=== PATIENT | male | born 1985 | race Caucasian/White ===

== ENCOUNTER 2017-02-10 12:56 | Emergency (ER) | payer OTHER ==
[~2017-02-10] VITALS: Ht 175.3 cm; Wt 92.3 kg
[2017-02-10 13:02] VITALS: Ht 175.3 cm; Wt 92.3 kg
--- NOTE | 2017-02-10 15:53 | RADRPT ---
PROCEDURE: XR Foot. CLINICAL INDICATION: Pain TECHNIQUE: AP, lateral and oblique views of the right foot was obtained. The images were reviewed on a PACS workstation. COMPARISON: None. FINDINGS: There is hallux valgus deformity, with medial exostosis, lateral displacement of the great toe, join t space narrowing and marginal osteophytosis. No acute fracture identified. The soft tissues are unremarkable. RPTAT: AA IMPRESSION: Hallux valgus deformity. .Thomas Abdalla MD, Date Time Electronically viewed and signed by .Thomas Abdalla MD, on 02/10/2017 15:52 .S/
[2017-02-10] MEDS ORDERED: IBUP-1542 PO (16:09)
--- NOTE | 2017-02-10 16:40 | ERD ---
ER Documentation Chief Complaint Chief Complaint HAS R SIDE OF FOOT AND NECK PAIN HPI This is a 31-year-old male presents to the ER with right-sided right foot pain that started about a week ago. He also has right-sided neck pain. Patient truck over, and feels that he is very tense all the time. Patient did not have any trauma to his foot or his neck. He denies any upper or lower extremity pain or weakness. He denies any fevers or chills. He does not have any foot numbness or tingling. ROS 12 point review of systems was done, all negative except per HPI. Medications Home Meds Active Scripts Ibuprofen* (Motrin*) 600 Mg Tab, 600 MG PO Q6, #30 TAB Prov:PATRICIO BAGLEY Ester 02/10/17 PMhx/Soc Medical and Surgical Hx: pt denies Medical Hx, pt denies Surgical Hx Physical Exam Vitals Vital Signs Date Time Temp Pulse Resp B/P Pulse Ox O2 Delivery O2 Flow Rate FiO2 02/10/17 13:02 98.5 67 18 120/78 99 Physical Exam GENERAL: The patient is well developed and appropriate for usual state of health , in no apparent distress. HEENT: Atraumatic NECK: No C-spine tenderness, no crepitus, no step-offs. And has full and nonpainful range of motion of his neck. To palpation along the right trapezius muscle CHEST: Clear to auscultation bilaterally. There are no rales, wheezes or rhonchi. HEART: Regular rate and rhythm. No murmurs, clicks, rubs or gallops. EXTREMITIES: Patient is able to bear weight and ambulate without pain. No surface trauma, ecchymosis, erythema, lesions, ulcers or break in skin integrity. The right foot is without obvious asymmetry or deformity when compared to the left foot. No bony step-off, NT to palpation over toes, midfoot , or hind foot, or sole. Normal plantar/ dorsiflexion, inversion, eversion. Distal motor and n/v status are intact NEURO: Alert and oriented SKIN: The skin is warm and dry. Results [address] [address] Radiology Main Line: [phone] DIAGNOSTIC IMAGING REPORT Patient: MARCOS BETTENCOURT : 1985 Age: 31 Sex: M MR #: [id number] DOS: 02/10/17 0000 Ordering MD: PATRICIO BAGLEY. DEMETRICE Location: [facility] Room/Bed: PROCEDURE: XR Foot. CLINICAL INDICATION: Pain TECHNIQUE: AP, lateral and oblique views of the right foot was obtained. The images were reviewed on a PACS workstation. COMPARISON: None. FINDINGS: There is hallux valgus deformity, with medial exostosis, lateral displacement of the great toe, joint space narrowing and marginal osteophytosis. No acute fracture identified. The soft tissues are unremarkable. RPTAT: AA IMPRESSION: Hallux valgus deformity. .Thomas Abdalla MD, Date Time Electronically viewed and signed by .Thomas Abdalla MD, on 02/10/2017 15: 52 .S/ CC: PATRICIO BAGLEY Procedures/MDM This is a 31-year-old male presents to the ER with neck pain and foot pain. Patient's imaging is normal, negative for any fractures or dislocations. Patient did not have any trauma of the neck or foot. Imaging of the neck is not indicated as he does not have any trauma, midline tenderness or distracting injury. She is neurologically intact with no focal neurological deficits. He does not have any weaknesses of his arms. I doubt spinal cord injury. Is afebrile and well-appearing. He will be sent with ibuprofen. He needs to follow-up with his primary care doctor within 1-2 days or return to ER sooner if symptoms worsen. My medical decision making shared with the patient he understands and agrees with plan. Departure Diagnosis: Primary Impression: Neck pain Additional Impression: Foot pain Condition: Stable Patient Instructions: Sprain Foot, Neck Pain, No Trauma Additional Instructions: Call your primary care doctor TOMORROW for an appointment during the next 1-2 days.See the doctor sooner or return here if your condition worsens before your appointment time. PATRICIO BAGLEY Feb 10, 2017 16:40
== END 2017-02-10 16:25 | disposition home or self-care (01) ==
LOC: FTE 12:56
DX: M79.671 Pain in right foot (principal); M54.2 Cervicalgia
CPT/HCPCS: 73630; Z7502

== ENCOUNTER 2017-03-14 13:11 | Emergency (ER) | payer OTHER ==
[~2017-03-14] VITALS: Ht 180.3 cm; Wt 92.8 kg
[~2017-03-14 13:11] MED LIST: IBUP-1542 PO
[2017-03-14 13:20] VITALS: Ht 180.3 cm; Wt 92.8 kg
[2017-03-14] MEDS ORDERED: HYDR-906 PO (14:14)
[2017-03-14] MEDS ORDERED: MED4DP PO (14:14)
[2017-03-14] MEDS ORDERED: NAPR-260 PO (14:14)
--- NOTE | 2017-03-14 15:30 | ERD ---
ER Documentation Chief Complaint Chief Complaint neck and head pain x 3 days HPI 31-year-old male complaining of neck pain 3-4 days. He describes pain from neck radiating to front temporal lobe. Denies any rashes. He has never had this before. Has not taken medications for pain. Denies fever. Denies vomiting. Denies visual changes. Denies acute traumatic injuries. Denies weakness to the upper extremities. ROS All systems reviewed and are negative except as per history of present illness. Medications Home Meds Active Scripts Naproxen* (Naprosyn*) 500 Mg Tablet, 500 MG PO BID Y for PAIN AND/OR INFLAMMATION, #30 TAB Prov:TOBIAS HANCOCK PA-C 03/14/17 Hydrocodone/Acetaminophen ([place] 5-325 Tablet) 1 Each Tablet, 1 TAB PO Q6H Y for PAIN, #7 TAB Prov:TOBIAS HANCOCK PA-C 03/14/17 Methylprednisolone* (Medrol* DOSE PACK) 4 Mg/Dose-Pack Tab.ds.pk, 4 MG PO . DIRECTED, #1 PACKET Prov:TOBIAS HANCOCK PA-C 03/14/17 Ibuprofen* (Motrin*) 600 Mg Tab, 600 MG PO Q6, #30 TAB Prov:PATRICIO BAGLEY 02/10/17 PMhx/Soc Medical and Surgical Hx: pt denies Medical Hx, pt denies Surgical Hx Hx Alcohol Use: No Hx Substance Use: No Hx Tobacco Use: No Smoking Status: Never smoker Physical Exam Vitals Vital Signs Date Time Temp Pulse Resp B/P Pulse Ox O2 Delivery O2 Flow Rate FiO2 03/14/17 13:20 98.2 70 18 136/85 100 Physical Exam GENERAL: The patient is well-appearing, well-nourished, in no acute distress HEENT: Pupils equal, round, and reactive to light. Tympanic membranes clear bilaterally. Oropharynx clear. NECK: C-spine is soft and supple. There is no meningismus. There is no cervical lymphadenopathy CHEST: Clear to auscultation bilaterally. There are no rales, wheezes or rhonchi. HEART: Regular rate and rhythm. No murmurs, clicks, rubs or gallops. No S3 or S4. EXTREMITIES: Equal pulses bilaterally. There is no peripheral clubbing, cyanosis or edema. No focal swelling or erythema. Full range of motion. Grossly neurovascularly intact. SKIN: There is no apparent rash or petechiae. The skin is warm and dry. Procedures/MDM MDM: A 1-year-old male complaining of pain to left occipital lobe radiating to left muslim. Patient likely has nerve inflammation however I cannot confidently rule out early shingles. Patient was told if he develops a rash to immediately return to the emergency room for medication. I have low suspicion for intracranial hemorrhage or neurodeficit. I have low suspicion for intracranial mass. Patient's neuro exam is within normal limits and pain is in the occipital nerve distribution. Patient is told if symptoms change or worsen to return to the ER immediately. Patient was discharged with strict ER precautions. All questions answered at discharge Departure Diagnosis: Primary Impression: Occipital neuralgia Condition: Stable Patient Instructions: Headache, Unspecified Additional Instructions: FOLLOW UP WITH YOUR PRIMARY CARE PHYSICIAN TOMORROW.Return to this facility if you are not improving as expected. TOBIAS HANCOCK PA-C Mar 14, 2017 15:30
== END 2017-03-14 14:30 | disposition home or self-care (01) ==
LOC: FTE 13:11
DX: M54.81 Occipital neuralgia (principal)
CPT/HCPCS: 99283

== ENCOUNTER 2017-10-11 18:17 | Emergency (ER) | END 2017-10-11 20:58 | disposition home or self-care (01) ==

== ENCOUNTER 2018-01-21 05:18 | Emergency (ER) | END 2018-01-21 07:51 | disposition home or self-care (01) ==

== ENCOUNTER 2018-01-22 06:03 | Emergency (ER) | END 2018-01-22 09:49 | disposition home or self-care (01) ==

== ENCOUNTER 2018-09-13 07:00 | Emergency (ER) | payer OTHER ==
[~2018-09-13] VITALS: Ht 180.3 cm; Wt 91.1 kg
[~2018-09-13 07:00] MED LIST changes: +HYDR-4011 PO; +MED4DP PO; +NAPR-985 PO
[2018-09-13 07:03] VITALS: BP 140/78; PULSE 70; RESP 18; Ht 180.3 cm; Wt 91.1 kg
--- NOTE | 2018-09-13 08:30 | ERD ---
ER Documentation Chief Complaint Chief Complaint BACK PAIN X 1 MONTH HPI 33-year-old male patient with a past medical history of CVA, vertebral dissection is currently on Coumadin presents to the ED complaining of right- sided lower back pain that started about 1 month ago. The pain is radiating to his right lower leg. Denies any one-sided weakness. Denies any dizziness, headache, neck stiffness. Patient is describing as achy and rates a 5 out of 10. States that one month ago, he lifted a heavy gallon of water, started to have back pain since then, feels like when he is moving his back, it worsens the pain. Patient rates his pain a 5 out of 10. States applying warm compresses and take getting massages helps his pain. States that he stopped taking Tylenol and ibuprofen since it was affecting his Coumadin levels. Denies any saddle anesthesia, urine or bowel incontinence, nausea, vomiting, diarrhea, neck stiffness, abdominal pain. ROS All systems reviewed and are negative except as per history of present illness. Medications Home Meds Active Scripts Naproxen* (Naprosyn*) 500 Mg Tablet, 500 MG PO BID PRN for PAIN AND/OR INFLAMMATION, #30 TAB Prov:TOBIAS HANCOCK PA-C 03/14/17 Hydrocodone/Acetaminophen ([place] 5-325 Tablet) 1 Each Tablet, 1 TAB PO Q6H PRN for PAIN, #7 TAB Prov:TOBIAS HANCOCK PA-C 03/14/17 Methylprednisolone* (Medrol* DOSE PACK) 4 Mg/Dose-Pack Tab.ds.pk, 4 MG PO . DIRECTED, #1 PACKET Prov:TOBIAS HANCOCK PA-C 03/14/17 Ibuprofen* (Motrin*) 600 Mg Tab, 600 MG PO Q6, #30 TAB Prov:PATRICIO BAGELY 02/10/17 Allergies Allergies: Coded Allergies: No Known Allergy (Unverified , 10/11/17) PMhx/Soc Hx Neurological Disorder: Yes (CVA 03/04) Hx Respiratory Disorders: No Hx Cardiac Disorders: No Hx Psychiatric Problems: No Hx Miscellaneous Medical Probl: No Hx Alcohol Use: No Hx Substance Use: No Hx Tobacco Use: No Smoking Status: Never smoker FmHx Family History: No diabetes, No coronary disease Physical Exam Vitals Vital Signs Date Temp Pulse Resp B/P (MAP) Pulse Ox O2 O2 Flow FiO2 Time Delivery Rate 09/13/18 97.6 70 18 140/78 98 07:03 (98) Physical Exam Const: [id number], well-nourished. In no acute distress. Head: Atraumatic, normocephalic Eyes: Normal Conjunctiva without injection. No purulent discharge. PERRL. EOMI ENT: Normal external ear. Ear canal without erythema. Tympanic membrane pearly guaman without effusion or bulging. Nasal canal clear with normal turbinates. Moist oropharynx without tonsillar exudates. Non-erythematous pharynx. Uvula mid line. No drooling. No trismus. Neck: Full range of motion. No meningismus. No cervical lymphadenopathy. Resp: Clear to auscultation bilaterally. No wheezing, rhonchi, rales, or crackles. No accessory muscle use. No retractions. Cardio: Regular rate and rhythm. No murmurs, rubs or gallops. Abd: Soft, non tender, non distended. Normal bowel sounds. No palpable masses. No rebound tenderness. No guarding. Skin: No petechiae or rashes Back: No midline tenderness. No CVA tenderness. Tender to palpation of the right lumbar muscles. Positive straight leg test. Ext: No cyanosis, or edema. Neur: Awake and alert. Psych: Normal Mood and Affect Procedures/MDM 33-year-old male patient with no significant past medical history presents ED complaining of back pain that started 1 month ago radiating to his right lower leg. Patient is afebrile and nontoxic-appearing. Patient's pain is likely secondary to musculoskeletal pain - back pain with sciatica with positive straight leg test. Patient reports that applying warm compresses helps with his pain, therefore this was recommended to patient. Patient has no midline te nderness, therefore no indication for an x-ray. Patient is ambulating here in the ED without difficulty. Denies saddle anesthesia, numbness or tingling, urine or bowel incontinence, weakness. Low suspicion for stroke, TIA, thoracic dissection, cauda equina syndrome, cord compression, nephrolithiasis, aortic aneurysm, aortic dissection, epidural abscess, spinal hematoma, malignancy, pyelonephritis, or other emergent conditions. Diagnosis: Back Pain Follow up with primary care physician in 1-2 days. Instructed patient to return to the ED sooner for any worsening symptoms. Patient's questions were answered. Patient is hemodynamically stable. Patient understood and agreed with discharge plan. Patient discharged stable. Disclaimer: Inadvertent spelling and grammatical errors are likely due to EHR/dictation software use and do not reflect on the overall quality of patient care. Also, please note that the electronic time recorded on this note does not necessarily reflect the actual time of the patient encounter. Departure Diagnosis: Primary Impression: Back pain Back pain location: back pain in unspecified location Chronicity: unspecified Back pain laterality: unspecified Qualified Codes: M54.9 - Dorsalgia, unspecified Condition: Stable Patient Instructions: Muscle Spasm, Relieving Tension in Your Back, Back Pain W/ Sciatica Referrals: RADHA RAI MD (PCP) [facility] YOU HAVE RECEIVED A MEDICAL SCREENING EXAM AND THE RESULTS INDICATE THAT YOU DO NOT HAVE A CONDITION THAT REQUIRES URGENT TREATMENT IN THE EMERGENCY DEPARTMENT. FURTHER EVALUATION AND TREATMENT OF YOUR CONDITION CAN WAIT UNTIL YOU ARE SEEN IN YOUR DOCTORS OFFICE WITHIN THE NEXT 1-2 DAYS. IT IS YOUR RESPONSIBILITY TO MAKE AN APPOINTMENT FOR FOLOW-UP CARE. IF YOU HAVE A PRIMARY DOCTOR --you should call your primary doctor and schedule an appointment IF YOU DO NOT HAVE A PRIMARY DOCTOR YOU CAN CALL OUR PHYSICIAN REFERRAL HOTLINE AT IF YOU CAN NOT AFFORD TO SEE A PHYSICIAN YOU CAN CHOSE FROM THE FOLLOWING [facility] [address] [facility]. [facility] [address] [facility]. [facility] [address] [facility]. [facility] [address] [facility] [address] [facility]. [facility]. [address] [facility]. [facility] YOU HAVE RECEIVED A MEDICAL SCREENING EXAM AND THE RESULTS INDICATE THAT YOU DO NOT HAVE A CONDITION THAT REQUIRES URGENT TREATMENT IN THE EMERGENCY DEPARTMENT. FURTHER EVALUATION AND TREATMENT OF YOUR CONDITION CAN WAIT UNTIL YOU ARE SEEN IN YOUR DOCTORS OFFICE WITHIN THE NEXT 1-2 DAYS. IT IS YOUR RESPONSIBILITY TO MAKE AN APPOINTMENT FOR FOLOW-UP CARE. IF YOU HAVE A PRIMARY DOCTOR --you should call your primary doctor and schedule and appointment IF YOU DO NOT HAVE A PRIMARY DOCTOR YOU CAN CALL OUR PHYSICIAN REFERRAL HOTLINE AT . IF YOU CAN NOT AFFORD TO SEE A PHYSICIAN YOU CAN CHOSE FROM THE FOLLOWING [facility] INSTITUTIONS: [facility] [address] [place] [address] [facility] [address] [place] [address] [facility] [address] [place] [address] [facility] URGENT C[facility]/SPECIALTIES Additional Instructions: Do not take any tylenol or ibuprofen. Call your primary care doctor TOMORROW for an appointment during the next 2-3 days for further consultation. Continue with heating pad conservative management as it is helping. See the doctor sooner or return here if your condition worsens before your appointment time. MILLIE HENNSESY PA-C September 13, 2018 08:30
== END 2018-09-13 08:32 | disposition home or self-care (01) ==
LOC: FTE 07:00
DX: M54.5 Low back pain (principal); Z86.73 Personal history of transient ischemic attack (TIA), and cerebral infarction without residual deficits
CPT/HCPCS: 99282